=== PATIENT | male | born 1985 | race Two or more races ===

== ENCOUNTER 2024-11-17 18:20 | Emergency (ER) | payer OTHER, SELFPAY ==
--- OUTSIDE RECORDS SUMMARY | 2024-11-17 18:22 | XMS_ITS | Clinical Summary ---
Author Organization [facility] Address [address] [place] [id number] Care Team Providers Care Wheel Inspector Name Role Phone Pcp, No Primary Care Provider Unavailabl e Social History Tobacco Use Types Packs/Day Years Used Date Smoking Tobacco: Never Assessed Sex and Gender Information Value Date Recorded Sex Assigned at Not on file Legal Sex Male 3:00 PM CDT Gender Identity Not on file Sexual Orientation Not on file Plan of Treatment Health Maintenance Due Date Last Done Comments Tetanus booster 09/19/1994 Depression screening for age 12+ 1995 HIV for age 15-65 09/19/1998 BMI (ht and wt on same day) for age 18+ 09/19/2001 Hepatitis C screening for ag e 18-79 09/19/2001 Hepatitis B series for 19+ ( 1 of 3 - 19+ 3-dose series) 09/19/2002 COVID-19 vaccine series (2023- season) 2023 Influenza Vaccine (#1) 2024 Lipids for age 35-44 07/10/2029 07/10/2024, 07/30/2016 Pneumococcal series for age 6-49 Aged Out No longer eligible b ased on patient's age to complete this topic Procedures Procedure Name Priority Date/Time Associated Diagnosis Comments LIPID PANEL Routine 07/10/2024 1:45 PM CDT from Last 3 Months or Most Recently Relevant to Health Maintenance Results * (ABNORMAL) LIPID PANEL (07/10/2024 1:45 PM CDT) CHOLESTEROL,TOTAL 211(H) 100 - 199 mg/dL 07/12/2024 1:06 PM CDT [facility] Comment: Cholesterol, Total Reference Ranges Desirable <200 mg/dL Borderline 200-239 mg/dL High >=240 mg/dL TRIGLYCERIDES 288(H) <150 mg/dL 07/12/2024 1:06 PM CDT [facility] HDL CHOLESTEROL 33(L) >40 mg/dL 1:06 PM CDT [facility] NON-HDL CHOLESTEROL 178(H) <145 mg/dl 07/12/2024 1:06 PM CDT [facility] CHOL/HDL RATIO 6.39(H) <4.50 07/12/2024 1:06 PM CDT [facility] LDL CHOLESTEROL 120 <=130 mg/dL 07/12/2024 1:06 PM CDT [facility] VLDL CHOLESTEROL 58(H) <=30 mg/dL 07/12/2024 1:06 PM CDT [facility] Blood BLOOD SPECIMEN / Unknown Client Collect / Unknown 07/10/2024 1:45 PM CDT 07/12/2024 12:39 PM CDT us Doctor Unknown CHEMISTRY Final Result [facility] [address] [place] [address], [place] from Last 3 Months or Most Recently Relevant to Health Maintenance Care Teams Wheel Inspector Relationship Specialty Start Date End Date Pcp, No . PCP - General 07/30/16
[2024-11-17 18:32] VITALS: BP 203/117; PULSE 60; RESP 22; TEMP 36.9; O2SAT 97; BMI 29.7
--- NOTE | 2024-11-17 18:36 | ED.GENADULT ---
HPI - General Adult General Chief complaint: Extremity Pain/Injury, Upper Stated complaint: Strap snapped back on RT hand Time Seen by Provider: 11/17/24 18:23 History of Present Illness HPI narrative: Right hand hit by metal strap on trailer this evening 39-year-old man presenting to the emergency department with complaint of right hand pain. Apparently was working with a trailer this evening and metal strap snapped onto his hand. Has resulted in swelling and marked pain. Can't move his middle 3 fingers. No other injuries are noted. 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 Related Data Home Medications ?Medication ?Instructions ?Recorded ?Confirmed No Known Home Medications 11/17/24 11/17/24 Allergies Allergy/AdvReac Type Severity Reaction Status Date / Time No Known Drug Allergies Allergy Verified 11/17/24 18:32 Review of Systems Status of ROS: Reports: 6 or more systems reviewed and unremarkable except as noted in History and below [facility] Medical History No significant past medical history Surgical History (Updated 11/17/24 @ 18:56 by Deuce Gayle RN) No significant past surgical history Social History Smoking Status: Never smoker Second hand tobacco smoke exposure: No How often do you have a drink containing alcohol: never AUDIT-C Alcohol total score: 0 Non-prescribed substance use: denies use Exam Narrative: Exam Narrative: Pleasant. Well muscled. Arm tattoos. Clearly quite uncomfortable. Gauze over the back of his right hand which is resting in his lap. Left palm has a little blood staining. Primary injury appears to be to his dorsum of the right hand. There is a half racquetball sized swelling on the dorsum of the hand with 2 points that are oozing some blood. Severe diffuse pain limiting movement. Appears well-perfused. Const: Vital Signs, click to edit/add: Vital Signs - 24 hr 11/17/24 18:32 11/17/24 18:45 11/17/24 18:53 Temperature 98.4 F 98.4 F Pulse Rate Pulse Rate [Pulse Oximeter] 60 Respiratory Rate 22 Blood Pressure Blood Pressure [Le ft Upper Arm] 203/117 H Pulse Oximetry 97 97 Oxygen Delivery Me thod Room Air 11/17/24 19:56 11/17/24 20:02 11/17/24 20:24 Temperature 98.4 F 98.4 F Pulse Rate 45 L 54 L Pulse Rate [Pulse Oximeter] Respiratory Rate 16 18 Blood Pressure 151/104 H 151/109 H Blood Pressure [Le ft Upper Arm] Pulse Oximetry 96 98 Oxygen Delivery Me thod Documenting provider has reviewed patient's vital signs: yes Course Vital Signs Vital signs: Initial Vital Signs Temperature 98.4 F 11/17/24 18:32 Temperature Source Temporal Artery Scan 11/17/24 18:32 Pulse Rate 60 11/17/24 18:32 Respiratory Rate 22 11/17/24 18:32 Blood Pressure 203/117 H 11/17/24 18:32 Blood Pressure Mean 145 H 11/17/24 18:32 Blood Pressure Position Sitting 11/17/24 18:32 Pulse Oximetry 97 11/17/24 18:32 Oxygen Delivery Method Room Air 11/17/24 18:32 Vital Signs Temperature 98.4 F 11/17/24 18:32 Pulse Rate 60 11/17/24 18:32 Respiratory Rate 22 11/17/24 18:32 Blood Pressure 203/117 H 11/17/24 18:32 Pulse Oximetry 97 11/17/24 18:32 Oxygen Delivery Method Room Air 11/17/24 18:32 Temperature 98.4 F 11/17/24 20:24 Pulse Rate 54 L 11/17/24 20:02 Respiratory Rate 18 11/17/24 20:02 Blood Pressure 151/109 H 11/17/24 20:02 Pulse Oximetry 98 11/17/24 20:02 Oxygen Delivery Method Room Air 11/17/24 18:32 Medications Administered Medications: Discontinued Medications Generic Name Dose Route Start Last Admin Trade Name Freq PRN Reason Stop Dose Admin Hydromorphone HCl 1 mg 11/17/24 18:42 11/17/24 18:53 Hydromorphone 0.5 Mg/0.5 Ml Inj IM 11/17/24 18:43 1 mg ONCE ONE Administration Ibuprofen 800 mg 11/17/24 18:42 11/17/24 18:53 Ibuprofen 400 Mg Tablet PO 11/17/24 18:43 800 mg ONCE ONE Administration Oxycodone/Acetaminophen 2 tab 11/17/24 20:00 11/17/24 20:16 Oxycodone/Apap 5-325 Tablet PO 11/17/24 20:01 2 tab ONCE ONE Administration Medical Decision Making MDM Narrative Medical decision making narrative: Clearly has hematoma. This might simply be that plus a periosteal contusion. I suspect though underlying fracture. Will assess further after some pain management as to intact ligamentous structures. Meantime also will x-ray the right hand for potential fractures. Discussed pain management. Would appreciate a shot for fast action. Will give a mg of Dilaudid and ibuprofen. Might need regional block Need to confirm tetanus/DTaP After receiving Dilaudid injection, prior to suspected effect became lightheaded and pressure dropped markedly from that on arrival into the 120s systolic and heart rate down to 38. Was feeling generally a little shaky. He admits he does not like injections as I had proposed regional block for his hand. Stable blood pressures and pulse is recovering. Three-view hand x-ray independently reviewed by me shows marked soft tissue swelling on the dorsum of the hand and transverse fractures at the midshaft of the 2nd and 3rd metacarpal. There is displacement of the distal segment toward the palmar surface by maybe 2/3 of the bone width. I would think that surgery is indicated here. Also that is essentially an open fracture. I did discuss this case with Orthopedics on-call. Recommendation was that would be better served at a tertiary facility doing trauma/hand trauma. On reassessment is still having a good deal of pain. Pain in particular in the 4th and 5th fingers of the right hand. Still declining regional blocks due to needle fears. Given initial reaction probably that is a good idea. Did offer 2 tabs of Percocet 5/325. Radiology over-read below Indication: Trauma to the dorsum of the hand, pain Technique: Three views of the right hand Comparison: None Findings/Impression: Transverse fractures through the mid shaft of the 2nd and 3rd metacarpals with mild palmar displacement of the distal fracture segments by approximately half a bone width. A suture anchor in the base of the 1st proximal phalanx. Severe soft tissue edema throughout the hand with subcutaneous gas seen along the dorsal aspect of the hand. Dictated by Daniel Cruz MD @ 11/17/2024 7:23:12 PM Discussed this with [facility] who is thankfully accepting in next step cares. I anticipate private conveyance. I returned to assess and after cleaning his hand, placing antibiotic ointment and gauze, splinted Mr. Newton not in a volar intrinsic + position splint. Arm sling. Anticipate discharge shortly to spouse/partner to drive to [facility]. See patient discharge plan for further discussion Medical Records Medical records reviewed: Yes I reviewed the patient's medical records Discharge Plan Discharge Clinical Impression: Fracture of metacarpal shaft of right hand, open, Hematoma Patient Disposition: Home w/ Parent or Adult Condition: Stable Additional Instructions: Please go directly to the [facility] Emergency Department. I spoke with Dr. Todd Beck who is expecting you. We have sent pictures of your fracture, x-rays to [place]. Por favor, dir?zbigniew directamente al [facility]. Habl? con el Dr. Todd Beck, quien lo espera. Hemos enviado im?genes de jeffrey fractura y radiograf?as a [place]. Prescriptions: No Action No Known Home Medications Follow Up/Referrals: Provider,Not a Local [Primary Care Provider, Family Practice] Stand Alone Forms: [facility] [employer] Info Instructions
--- NOTE | 2024-11-17 18:42 | CRLHL7_ITS ---
For Patients: As a result of the Cures Act, medical imaging exams and procedure reports are released immediately into your electronic medical record. You may view this report before your referring provider. If you have questions, please contact your health care provider. Indication: Trauma to the dorsum of the hand, pain Technique: Three views of the right hand Comparison: None Findings/Impression: Transverse fractures through the mid shaft of the 2nd and 3rd metacarpals with mild palmar displacement of the distal fracture segments by approximately half a bone width. A suture anchor in the base of the 1st proximal phalanx. Severe soft tissue edema throughout the hand with subcutaneous gas seen along the dorsal aspect of the hand. Dictated by Daniel Cruz MD @ 11/17/2024 7:23:12 PM (Electronically Signed)
[2024-11-17 18:45] VITALS: O2SAT 97
[2024-11-17 18:53] VITALS: TEMP 36.9
[2024-11-17] MEDS: IBUPROFEN 400 MG TABLET 800 MG PO (18:53)
[2024-11-17 19:56] VITALS: BP 151/104; PULSE 45; RESP 16; TEMP 36.9; O2SAT 96
[2024-11-17 20:02] VITALS: BP 151/109; PULSE 54; RESP 18; O2SAT 98
[2024-11-17] MEDS: OxyCODONE/APAP 5-325 TABLET 2 TAB PO (20:16)
[2024-11-17 20:24] VITALS: TEMP 36.9
== END 2024-11-17 21:00 | disposition home or self-care (01) ==
PROVIDERS: Emergency Provider Family Medicine
DX: S62.620B Displaced fracture of middle phalanx of right index finger, initial encounter for open fracture (principal); S62.622B Displaced fracture of middle phalanx of right middle finger, initial encounter for open fracture; W22.8XXA Striking against or struck by other objects, initial encounter
CPT/HCPCS: 29125; 73130; 94761; 99283; 99284; A9270; J1171

== ENCOUNTER 2024-12-06 09:51 | Outpatient (RCR) | payer OTHER, SELFPAY | END 2025-04-05 23:59 | disposition home or self-care (01) | PROVIDERS: Visit Provider Orthopaedic Surgery Hand Surgery | DX: S62.91XD Unspecified fracture of right hand, subsequent encounter for fracture with routine healing (principal); Z51.89 Encounter for other specified aftercare | CPT/HCPCS: 97165; 97530; T1013 ==